=== PATIENT | male | born 1995 ===

== ENCOUNTER 2023-12-12 17:45 | Emergency (ER) | payer OTHER, SELFPAY ==
[2023-12-12 17:48] VITALS: BP 143/87; PULSE 80; TEMP 36.9; O2SAT 99; BMI 28.8
[2023-12-12] MEDS: METHYLPREDNISOLONE SOD SUCC PF 125 MG/2 ML VIAL IVP (18:30)
[2023-12-12] MEDS: 0.9 % SODIUM CHLORIDE 1,000 ML 999 ML IV (18:30)
[2023-12-12] MEDS: FAMOTIDINE/PF 20 MG/2 ML VIAL IV (18:30)
[2023-12-12] MEDS: DIPHENHYDRAMINE HCL 50 MG/ML VIAL IV (18:30)
--- NOTE | 2023-12-12 19:56 | ED.ALLEREA1 ---
HPI - Allergic Reaction General Chief complaint: Allergic Reaction Stated complaint: ALLERGIC REACTION Time Seen by Provider: 12/12/23 17:53 Source: patient Mode of arrival: walk-in Limitations: no limitations History of Present Illness HPI narrative: 28-year-old male presents to the emergency department with complaint of rash. Onset 6 days ago. Locating throughout entire body with exception of head and neck. Patient is currently in a treatment facility and believes the laundry detergent being used as the reason for the rash. Complains of itching throughout his body. He has been started on some medicine for the rash, but only has had 1 dose. Patient was given prescription for tapering dose of prednisone, Atarax, and cetirizine. Complains that the rash is intolerable at present. Denies any fever, chills, difficulty breathing, throat tightening, difficulty swallowing. Quality:?as above Severity:?moderate Timing:?as above, constant Context: Normal setting and activity? Modifying factors:?none Associated symptoms: as above Related Data Home Medications ?Medication ?Instructions ?Recorded ?Confirmed buprenorphine 24 mg/0.48 mL 24 mg subcut Q7D 12/12/23 12/12/23 solution,exten.rel.subcutaneous syringe (Brixadi Weekly) cetirizine 10 mg tablet (24Hour 5 mg PO DAILY 12/12/23 12/12/23 Allergy) hydroxyzine pamoate 25 mg capsule 25 mg PO Q6H PRN anxiety 12/12/23 12/12/23 (Vistaril) prednisone 10 mg tablets in a dose 10 mg PO DAILY 12/12/23 12/12/23 pack Previous Rx's ?Medication ?Instructions ?Recorded famotidine 20 mg tablet (Pepcid) 20 mg PO BID #20 tabs 12/12/23 Allergies Allergy/AdvReac Type Severity Reaction Status Date / Time No Known Drug Allergies Allergy Verified 12/12/23 17:48 Review of Systems ROS Constitutional Denies: fever or chills Eyes Denies: eye discharge Ears, nose, mouth, and throat Denies: throat pain, throat swelling, difficulty swallowing, hoarseness, swelling of lips/tongue, nasal discharge or nasal congestion Cardiovascular Denies: shortness of breath with exertion Respiratory Denies: shortness of breath or wheezing Gastrointestinal Denies: difficulty swallowing Musculoskeletal Denies: extremity swelling Integumentary/Breast Reports: rash, itching and redness; Denies: skin pain Allergic/Immunologic Denies: throat swelling or wheezing Exam Constitutional Vital Signs, click to edit/add: Last Vital Signs Temp 98.4 F 12/12/23 17:48 Pulse 80 12/12/23 17:48 Resp 18 12/12/23 17:48 BP 143/87 H 12/12/23 17:48 Pulse Ox 99 12/12/23 17:48 O2 Del Method Room Air 12/12/23 17:48 Documenting provider has reviewed patient's vital signs: yes Common normals: no apparent distress, oriented x3 and alert General appearance: not in distress [facility] Common normals: normocephalic, head/scalp atraumatic, external ears normal, external nose normal and moist oral mucous membranes Head and scalp: normocephalic and atraumatic Face and sinus: normal facial exam; no facial erythema and no facial edema Nose: external nose normal External ear: external ears normal Mouth: lip normal and tongue normal; no drooling Eye Common normals: conjunctivae normal Periorbital: periorbital findings normal Eyelid: eyelids normal Conjunctiva: conjunctiva(e) normal Neck & C-Spine Common normals: supple General: normal visual inspection Chest Chest: rash Respiratory Common normals: normal respiratory effort, no retractions and clear to auscultation bilaterally Effort & inspection: able to speak in complete sentences; no stridor Auscultation: clear to auscultation bilaterally; no wheezes Cardio Common normals: regular rate, regular rhythm and no murmurs Rate: regular rate Rhythm: regular rhythm GI Inspection: other (rash) Back & Pelvis Other: Diffuse maculopapular rash noted throughout his Extremity Other: + Maculopapular rash noted to all extremities Neuro Common normals: oriented x3 Sensorium/orientation: alert Course Vital Signs Vital signs: Vital Signs Temperature 98.4 F 12/12/23 17:48 Pulse Rate 80 12/12/23 17:48 Respiratory Rate 18 12/12/23 17:48 Blood Pressure 143/87 H 12/12/23 17:48 Pulse Oximetry 99 12/12/23 17:48 Oxygen Delivery Method Room Air 12/12/23 17:48 Temperature 98.4 F 12/12/23 17:48 Pulse Rate 80 12/12/23 17:48 Respiratory Rate 18 12/12/23 17:48 Blood Pressure 143/87 H 12/12/23 17:48 Pulse Oximetry 99 12/12/23 17:48 Oxygen Delivery Method Room Air 12/12/23 17:48 MDM - Allergic Reaction MDM Narrative Medical decision making narrative: This is a pleasant 28-year-old male who presents to the emergency department with complaint of generalized rash throughout his body excluding his head and neck. Onset about 6 days ago. Patient is currently staying in a treatment center and believes that the laundry sure that they are using is reacting with his skin. Complains of generalized itching. He was started on tapering prednisone, cetirizine, and Atarax. He has only had 1 dose of this. Unfortunately, symptoms intolerable at present. Came in for further evaluation/treatment. Denies any difficulty breathing, tongue swelling, throat tightening, facial swelling. On arrival, afebrile, vital signs are stable. On exam, nontoxic, well-appearing patient in no distress. He has generalized maculopapular rash with some wheals throughout the entire body. The rash blanches. Greatest concentration noted to be his arms. Throat is clear. Managing own secretions. Lung sounds clear and equal bilaterally, no stridor or wheezing present. Favor dermatitis, allergic reaction, urticaria Anaphylaxis less likely based on history and physical exam, stable vital signs. No airway involvement. Patient was given IV Solu-Medrol, Benadryl, and Pepcid with overall improvement of his symptoms. He still had a rash at time of disposition, but it was far less pink and he was not having any itching. Disposition ? The patient was discharged. Plan: Patient will be discharged to home. Condition at time of disposition: stable He was advised to continue taking his medications as previously prescribed. We will also add Pepcid for further histamine blockage. Advised to follow up with primary provider. Advised to return for any worsening and/or development of new, concerning signs or symptoms PLEASE NOTE: Portions of the medical record may have been produced using electronic atm technician and may contain errors with respect to translation of words which may not have been identified prior to finalization of the chart. Medical Records Attestation: I reviewed the patient's medical records. Discharge Plan Discharge Stand Alone Forms: Portal Instructions Chief Complaint: Allergic Reaction Clinical Impression: Allergic reaction, Urticaria Patient Disposition: Home, Self-Care Time of Disposition Decision: 19:52 Condition: Good Mode of Transportation: Private Vehicle Prescriptions / Home Meds: New famotidine [Pepcid] 20 mg tablet 20 mg PO BID Qty: 20 0RF No Action Brixadi 24 mg/0.48 mL solution, extended rel syringe 24 mg subcut Q7D prednisone 10 mg tablets,dose pack 10 mg PO DAILY hydroxyzine pamoate [Vistaril] 25 mg capsule 25 mg PO Q6H PRN (Reason: anxiety) cetirizine [24Hour Allergy] 10 mg tablet 5 mg PO DAILY Print Language: French Instructions: Urticaria (ED), General Allergic Reaction (ED) Referrals: TJ COVARRUBIAS [Primary Care Provider] - 1 week
== END 2023-12-12 20:48 | disposition home or self-care (01) ==
PROVIDERS: Emergency Provider Emergency Medicine; PCP Family Medicine
DX: L50.0 Allergic urticaria (principal)
CPT/HCPCS: 96374; 96375; 99284; J1200; J2919